=== PATIENT | female | born 1980 | race Caucasian/White ===

== ENCOUNTER 2017-11-04 15:42 | Emergency (ER) | payer SELFPAY ==
[2017-11-04] MEDS ORDERED: HYDROCODONE/ACETAMINOPHEN 5-325 MG TABLET PO ONE (16:09)
--- NOTE | 2017-11-04 16:12 | ER Document Report ---
HPI - HPI Patient complains to provider of: Left foot and ankle pain Onset: Yesterday Onset/Duration: Sudden Quality of pain: Sharp Pain Level: 4 Context: Patient states she was sitting on her foot and that it went to sleep. Patient states that whenever she stood up her foot and ankle rolled under her. Patient complains of pain now to left ankle and foot. Patient with bruising to left lateral foot area Associated Symptoms: Other - Left foot and ankle pain Exacerbated by: Standing, Movement, Walking Relieved by: Denies Similar symptoms previously: No Recently seen / treated by doctor: No - ROS ROS below otherwise negative: Yes Systems Reviewed and Negative: Yes All other systems reviewed and negative - CONSTITUTIONAL Constitutional: DENIES: Fever - GASTROINTESTINAL Gastrointestinal: DENIES: Nausea - REPRODUCTIVE Reproductive: DENIES: : - MUSCULOSKELETAL Musculoskeletal: REPORTS: Extremity pain, Swelling - DERM Skin Color: Ecchymosis Past Medical History - General Information source: Patient - Social History Smoking Status: Current Every Day Smoker Smoking Education Provided: Yes Frequency of alcohol use: None Drug Abuse: None Occupation: None Lives with: Spouse/Significant other Family History: Reviewed & Not Pertinent Pulmonary Medical History: Reports: Hx Asthma Psychiatric Medical History: Reports: Hx Depression Past Surgical History: Reports: Hx Orthopedic Surgery - wrist, Hx Tubal Ligation - Immunizations Hx Diphtheria, Pertussis, Tetanus Vaccination: No Vertical Provider Document - CONSTITUTIONAL Agree With Documented VS: Yes Exam Limitations: No Limitations General Appearance: WD/WN, No Apparent Distress - INFECTION CONTROL TRAVEL OUTSIDE OF THE [place] IN LAST 30 DAYS: No - HEENT HEENT: Atraumatic, Normocephalic - NECK Neck: Normal Inspection - RESPIRATORY Respiratory: No Respiratory Distress O2 Sat by Pulse Oximetry: 100 - CARDIOVASCULAR Pulses: Normal: Posterior tibial, Dorsalis pedis - MUSCULOSKELETAL/EXTREMETIES Musculoskeletal/Extremeties: MAEW, Tender - Left ankle tenderness over bimalleolar area, left midfoot tenderness to lateral aspect with overlying ecchymosis and edema, Edema, Eccymosis - NEURO Level of Consciousness: Awake, Alert, Appropriate Motor/Sensory: No Motor Deficit - DERM Integumentary: Warm Course - Re-evaluation Re-evalutation: 11/04/17 16:12 Smoking cessation handout provided to patient 11/04/17 17:36 Controlled substance database reviewed - Vital Signs Vital signs: Temp Pulse Resp BP Pulse Ox 97.8 F 66 16 118/82 100 11/04/17 16:01 11/04/17 16:01 11/04/17 16:01 11/04/17 16:01 11/04/17 16:01 - Diagnostic Test Radiology reviewed: Image reviewed, Reports reviewed Procedures - Immobilization Left Foot Pre-Proc Neuro Vasc Exam: Normal Immobilizer type: Joce wrap, Post-op shoe Performed by: PCT Post-Proc Neuro Vasc Exam: Normal Alignment checked and good: Yes Discharge - Discharge Clinical Impression: Ankle sprain Qualifiers: Encounter type: initial encounter Involved ligament of ankle: unspecified ligament Laterality: left Qualified Code(s): S93.402A - Sprain of unspecified ligament of left ankle, initial encounter Foot sprain Qualifiers: Encounter type: initial encounter Laterality: left Qualified Code(s): S93.602A - Unspecified sprain of left foot, initial encounter Foot contusion Qualifiers: Encounter type: initial encounter Laterality: left Qualified Code(s): S90.32XA - Contusion of left foot, initial encounter Condition: Stable Disposition: HOME, SELF-CARE Instructions: Joce Wrap ([facility]), Oral Narcotic Medication ([facility]), Post-Op Shoe ([facility] ), Sprain ([facility]), Sprained Ankle ([facility]) Additional Instructions: Return immediately for any new or worsening symptoms Followup with your primary care provider, call tomorrow to make a followup appointment Weightbearing as tolerated Follow-up with orthopedic doctor for any continued pain or problems Prescriptions: Acetaminophen with Codeine [Acetaminophen-Cod #3 Tablet] 1 each PO Q6 PRN #12 tablet PRN Reason: Naproxen [Naprosyn 250 Nmg Tablet] 1 tab PO BID #14 tablet Forms: Smoking Cessation Education Referrals: [facility] ([place] [Provider Group] - Follow up tomorrow
--- NOTE | 2017-11-04 17:09 | RADIOLOGY REPORT (SQ) ---
EXAM DESCRIPTION: FOOT LEFT COMPLETE COMPLETED DATE/TIME: 11/04/2017 4:56 pm REASON FOR STUDY: rolled foot/ankle COMPARISON: None. NUMBER OF VIEWS: Three views. TECHNIQUE: AP, lateral and oblique radiographic images acquired of the left foot. LIMITATIONS: None. FINDINGS: MINERALIZATION: Normal. BONES: No acute fracture or dislocation. Hallux valgus with bunion deformity. No worrisome bone les ions. JOINTS: No effusions. SOFT TISSUES: No soft tissue swelling. No foreign body. OTHER: No other significant finding. IMPRESSION: HALLUX VALGUS WITH BUNION DEFORMITY. NO RADIOGRAPHIC EVIDENCE OF ACUTE INJURY. TECHNICAL DOCUMENTATION: JOB ID: [id number] [employer]- All Rights Reserved
--- NOTE | 2017-11-04 17:09 | RADIOLOGY REPORT (SQ) ---
EXAM DESCRIPTION: ANKLE LEFT COMPLETE COMPLETED DATE/TIME: 11/04/2017 4:56 pm REASON FOR STUDY: rolled foot/ankle COMPARISON: None. NUMBER OF VIEWS: Three views. TECHNIQUE: AP, lateral, and oblique radiographic images acquired of the left ankle. LIMITATIONS: None. FINDINGS: MINERALIZATION: Normal. BONES: No acute fracture or dislocation. No worrisome bone lesions. JOINTS: No effusions. SOFT TISSUES: No soft tissue swelling. No foreign body. OTHER: No other significant finding. IMPRESSION: NEGATIVE STUDY OF THE LEFT ANKLE. NO RADIOGRAPHIC EVIDENCE OF ACUTE INJURY. TECHNICAL DOCUMENTATION: JOB ID: [id number] [employer]- All Rights Reserved
[2017-11-04 18:17] VITALS: BP 128/70
== END 2017-11-04 18:19 | disposition home or self-care (01) ==
LOC: ER 15:42
DX: S93.402A Sprain of unspecified ligament of left ankle, initial encounter (principal); S93.602A Unspecified sprain of left foot, initial encounter; X50.0XXA Overexertion from strenuous movement or load, initial encounter; J45.909 Unspecified asthma, uncomplicated; F17.200 Nicotine dependence, unspecified, uncomplicated
CPT/HCPCS: 99283

== ENCOUNTER 2018-05-07 17:22 | Emergency (ER) | payer OTHER ==
[2018-05-07 17:58] VITALS: BP 121/75
[2018-05-07] MEDS ORDERED: NAPROXEN 250 MG TABLET PO ONE (18:35)
[2018-05-07] MEDS ORDERED: DIAZEPAM 5 MG TABLET PO ONE (18:35)
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
== END 2018-05-07 18:53 | disposition home or self-care (01) ==
LOC: ER 17:22
DX: S39.012A Strain of muscle, fascia and tendon of lower back, initial encounter (principal); V59.40XA Driver of pick-up truck or van injured in collision with unspecified motor vehicles in traffic accident, initial encounter; J45.909 Unspecified asthma, uncomplicated; Z91.018 Allergy to other foods
CPT/HCPCS: 99283

== ENCOUNTER 2019-03-09 12:03 | Emergency (ER) | payer OTHER ==
--- NOTE | 2019-03-09 12:26 | ER Document Report ---
ED Respiratory Problem - General Chief Complaint: Breathing Difficulty Stated Complaint: DIFFICULTY BREATHING/SORE THROAT Time Seen by Provider: 03/09/19 12:09 Mode of Arrival: Ambulatory Information source: Patient Notes: 38-year-old female presented to ED for cough congestion sore throat and runny nose. 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 Patient is alert oriented respirations regular and unlabored speaking in full sentences walks with a even steady gait swallowing her own saliva easily. TRAVEL OUTSIDE OF THE [place] IN LAST 30 DAYS: No - HPI Patient complains to provider of: Cough, Other - Sore throat Onset: This morning Duration: Intermittent episodes Initiating Event: URI Quality of pain: Other - Sore throat Severity: Moderate Pain Level: 3 Context: Smoker Cough: Nonproductive Sputum amount: None Associated symptoms: Congestion, Cough, PND, Runny nose, Sinus pain/pressure, Sore Throat, Other - Swollen hands from frequent shucking of shellfish Similar symptoms previously: Yes Recently seen / treated by doctor: No - Related Data Allergies/Adverse Reactions: onions Allergy (Intermediate, Uncoded 03/09/19 12:05) Hives Past Medical History - General Information source: Patient - Social History Smoking Status: Current Every Day Smoker Cigarette use (# per day): Yes - Pack per day Chew tobacco use (# tins/day): No Smoking Education Provided: Yes - Form and Frequency of alcohol use: Occasional 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 none in the last couple days 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 Lives with: Family - Uncle Family History: Reviewed & Not Pertinent Patient has suicidal ideation: No Patient has homicidal ideation: No - Past Medical History Cardiac Medical History: Reports: None Pulmonary Medical History: Reports: Hx Asthma EENT Medical History: Reports: None Neurological Medical History: Reports: None Endocrine Medical History: Reports: None Renal/ Medical History: Reports: None Malignancy Medical History: Reports: None GI Medical History: Reports: Hx Hepatitis - hep c Musculoskeletal Medical History: Reports Hx Musculoskeletal Deformity, Reports Hx Musculoskeletal Trauma Skin Medical History: Reports None Psychiatric Medical History: Reports: Hx Depression Traumatic Medical History: Reports: Hx Fractures Infectious Medical History: Reports: Hx Hepatitis - hep c Past Surgical History: Reports: Hx Orthopedic Surgery - wrist, Hx Tubal Ligation - Immunizations Hx Diphtheria, Pertussis, Tetanus Vaccination: No Review of Systems - Review of Systems Constitutional: Recent illness EENT: Nose congestion, Nose discharge, Sinus pressure, Sinus discharge, Throat pain Cardiovascular: No symptoms reported Respiratory: Cough Gastrointestinal: No symptoms reported Genitourinary: No symptoms reported Female Genitourinary: No symptoms reported Musculoskeletal: No symptoms reported Skin: No symptoms reported Neurological/Psychological: No symptoms reported -: Yes All other systems reviewed and negative Physical Exam - Vital signs Vitals: Temp Pulse Resp BP Pulse Ox 97.8 F 86 18 99/58 L 99 03/09/19 12:09 03/09/19 12:09 03/09/19 12:09 03/09/19 12:03/09/19 12:09 Interpretation: Normal - General General appearance: Appears well, Alert - HEENT Head: Normocephalic, Atraumatic Eyes: Normal Pupils: PERRL Ears: Normal External canal: Normal Tympanic membrane: Normal Sinus: Normal Nasal: Purulent discharge, Swelling Mouth/Lips: Normal Mucous membranes: Normal Pharynx: Post nasal drainage Neck: Normal - Respiratory Respiratory status: No respiratory distress Chest status: Nontender Breath sounds: Nonproductive cough Chest palpation: Normal - Cardiovascular Rhythm: Regular Heart sounds: Normal auscultation Murmur: No - Abdominal Inspection: Normal Distension: No distension Bowel sounds: Normal Tenderness: Nontender Organomegaly: No organomegaly - Back Back: Normal, Nontender - Extremities General upper extremity: Nontender, Normal color, Normal ROM, Normal temperature General lower extremity: Normal inspection, Nontender, Normal color, Normal ROM, Normal temperature, Normal weight bearing. 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 Patient's negative chest x-ray negative strep negative and a mono. Patient states she had been clean from her heroin but has used recently but does not want family to know. Family was not informed. Patient was discharged home with instructions for Flonase nasal spray salt and soda solution [id number] antihistamines and other recommendations for cough and cold congestion symptoms. Patient is alert and oriented respirations regular and unlabored able to swallow with no difficulty. Patient was discharged home. After performing a Medical Screening Examination, I estimate there is LOW risk for ACUTE CORONARY SYNDROME, RESPIRATORY FAILURE, SEPSIS OR MENINGITIS, thus I consider the discharge disposition reasonable. I have reevaluated this patient multiple times and no significant life threatening changes are noted. The patient and I have discussed the diagnosis and risks, and we agree with discharging home with close follow-up. We also discussed returning to the Emergency Department immediately if new or worsening symptoms occur. We have discussed the symptoms which are most concerning (e.g., changing or worsening pain, trouble swallowing or breathing, neck stiffness, fever) that necessitate immediate return. - Vital Signs Vital signs: Temp Pulse Resp BP Pulse Ox 97.8 F 86 18 99/58 L 99 03/09/19 12:09 03/09/19 12:09 03/09/19 12:09 03/09/19 12:03/09/19 12:09 - Diagnostic Test Radiology reviewed: Image reviewed, Reports reviewed Discharge - Discharge Clinical Impression: Viral sore throat URI (upper respiratory infection) Qualifiers: URI type: unspecified viral URI Qualified Code(s): J06.9 - Acute upper respiratory infection, unspecified Condition: Stable Disposition: HOME, SELF-CARE Instructions: Family Physicians / Practices Additional Instructions: SORE THROAT: Sore throats may be caused by viruses, bacteria, or fungi. Most are due to a virus, and must get better on their own. Bacterial sore throats, particularly those due to "strep," need treatment with antibiotics. If an antibiotic is prescribed, be sure to take the medication for a full 10 days. Failure to take the antibiotic can result in complications such as rheumatic fever. Sometimes, an injection of antibiotics is given instead of pills or liquid. This single "shot" is equal in effectiveness to the oral med ication. To relieve symptoms, take acetaminophen for pain. Sip clear liquids frequently, or eat popsicles or ice chips. Anesthetic sprays or lozenges may help. Make sure the air in the room is not too dry. Avoid using decongestants or antihistamines. Call the doctor if there is no improvement in two days, or if you have difficulty breathing, increasing throat pain, high fever, rash, or frequent vomiting. UPPER RESPIRATORY ILLNESS: You have a viral infection of the respiratory passages -- a "cold." This common infection causes nasal congestion, drainage, and often sore throat and cough. It is highly contagious. The disease usually lasts about 10 to 14 days. There is no "cure" for the viral infection -- it must run its course. If there is a complication, such as bacterial infection in the nose, sinuses, middle ear, or bronchial tubes, antibiotics may be required. The antibiotics won't affect the virus. Drink plenty of fluids. A humidifier may help. An expectorant medication or decongestant may make you more comfortable. Use acetaminophen or ibuprofen for fever or aches. See the doctor if fever persists over two days, if there is any significant worsening of your symptoms, or if you simply fail to improve as expected. COUGH-SUPPRESSANT & EXPECTORANT MEDICATION: You are to use a cough medication as needed for relief of symptoms. This medicine is a combination of an expectorant (to make the mucous thinner and more easily "coughed up") and a cough suppressant (to reduce the frequency of coughing). The cough-suppressant medicine is related to narcotics. You may experience mild nausea and sleepiness. Some patients who are very sensitive to narcotics may have stomach pain from this medicine. Taking the medicine with food reduces these side effects. Do not drive or work with machinery until you know how this medicine affects you. The expectorant should have no side effects. Iodine-containing expectorants (such as organidin) should not be taken by persons with active thyroid disease unless approved by your doctor. Call the doctor if you develop shortness of breath, hives, rash, itching, lightheadedness, or severe nausea and vomiting. USE OF ACETAMINOPHEN (Tylenol): Acetaminophen may be taken for pain relief or fever control. It's much safer than aspirin, offering a wider range of "safe" dosages. It is safe during . Some brand names are Tylenol, Panadol, Datril, Anacin 3, Tempra, and Liquiprin. Acetaminophen can be repeated every four hours. The following are maximum recommended dosages: >89 pounds or adults 650 mg to 900 mg Acetaminophen can be repeated every four hours. Maximum dose not to exceed 4000 mg a day. SMOKING: If you smoke, you should stop smoking. The tar and chemicals in cigarette smoke are harmful. Smoking has been shown to cause: emphysema chronic bronchitis lung cancer mouth and throat cancer stomach and pancreas cancer premature aging defects In addition, smoking increases ear and lung infections in children of smokers. Recommend [id number] antihistamines, Mucinex, Flonase, salt and soda solution gargles. You could also use saline nasal spray to help with the drainage from the nose. Salt and soda solution Salt and soda solution 1 quart of water 1 tablespoon of salt 1 teaspoon of baking soda Mixed 3 ingredients together and boil for 1 minute Placed in a covered quart jar Use 1/2 ounce of cold solution to gargle 3 times a day FOLLOW-UP CARE: If you have been referred to a physician for follow-up care, call the physicians office for an appointment as you were instructed or within the next two days. If you experience worsening or a significant change in your symptoms, notify the physician immediately or return to the Emergency Department at any time for re-evaluation. Forms: Smoking Cessation Education, Return to Work
--- NOTE | 2019-03-09 12:49 | RADIOLOGY REPORT (SQ) ---
EXAM DESCRIPTION: CHEST 2 VIEWS COMPLETED DATE/TIME: 03/09/2019 12:36 pm REASON FOR STUDY: cough COMPARISON: 10/15/2016. EXAM PARAMETERS: NUMBER OF VIEWS: two views TECHNIQUE: Digital Frontal and Lateral radiographic views of the chest acquired. RADIATION DOSE: NA LIMITATIONS: none FINDINGS: LUNGS AND PLEURA: No opacities, masses or pneumothorax. No pleural effusion. MEDIASTINUM AND HILAR STRUCTURES: No masses or contour abnormalities. HEART AND VASCULAR STRUCTURES: Heart normal size. No evidence for failure. BONES: No acute findings. HARDWARE: None in the chest. OTHER: No other significant finding. IMPRESSION: NO ACUTE RADIOGRAPHIC FINDING IN THE CHEST. TECHNICAL DOCUMENTATION: JOB ID: [id number] [employer]- All Rights Reserved Reading location - IP/workstation name: [email or web address]
[2019-03-09 13:20] VITALS: BP 100/60
== END 2019-03-09 13:18 | disposition home or self-care (01) ==
LOC: ER 12:03
DX: J02.8 Acute pharyngitis due to other specified organisms (principal); J06.9 Acute upper respiratory infection, unspecified; B97.89 Other viral agents as the cause of diseases classified elsewhere; R09.89 Other specified symptoms and signs involving the circulatory and respiratory systems; J34.89 Other specified disorders of nose and nasal sinuses; R09.82 Postnasal drip; R05 Cough; M79.89 Other specified soft tissue disorders; F17.210 Nicotine dependence, cigarettes, uncomplicated; F11.10 Opioid abuse, uncomplicated; J45.909 Unspecified asthma, uncomplicated; R09.81 Nasal congestion
CPT/HCPCS: 36415; 71046; 86308; 87070; 87880; 99283

== ENCOUNTER 2019-08-07 15:49 | Emergency (ER) | payer SELFPAY ==
[2019-08-07] MEDS ORDERED: ONDANSETRON HCL INJ/PF 4 MG/2 ML SDV IV ONE (16:03)
[2019-08-07] MEDS ORDERED: NORMAL SALINE 1000 ML 1,000 ML IV ONE ×2 (16:03→19:24)
--- NOTE | 2019-08-07 16:06 | ER Document Report ---
ED Medical Screen (RME) - General Chief Complaint: Medical Clearance Stated Complaint: DETOX Time Seen by Provider: 08/07/19 16:03 Mode of Arrival: Ambulatory Information source: Patient Notes: Patient presents stating that she is withdrawing from opiates as well as benzos. Patient states that she was going to [facility] facility although they advised her that she had to come here because she had had seizures. Patient denies any history of seizures other than withdrawal seizures due to withdrawing from benzodiazepine drugs. Patient states she did take 2 mg of Xanax prior to her arrival here today. Patient states that she has been using opiates, heroin as well as methamphetamine and Xanax. Patient complains of feeling weak, thirsty, dizzy, shaky and emotional. I have greeted and performed a rapid initial assessment of this patient. A comprehensive ED assessment and evaluation of the patient, analysis of test results and completion of the medical decision making process will be conducted by additional ED providers. TRAVEL OUTSIDE OF THE [place] IN LAST 30 DAYS: No - Related Data Allergies/Adverse Reactions: onions Allergy (Intermediate, Uncoded 08/07/19 16:00) Hives Past Medical History Pulmonary Medical History: Reports: Hx Asthma Renal/ Medical History: Denies: Hx Peritoneal Dialysis GI Medical History: Reports: Hx Hepatitis - hep c Musculoskeltal Medical History: Reports Hx Musculoskeletal Deformity, Reports Hx Musculoskeletal Trauma Psychiatric Medical History: Reports: Hx Depression Traumatic Medical History: Reports: Hx Fractures Infectious Medical History: Reports: Hx Hepatitis - hep c Past Surgical History: Reports: Hx Orthopedic Surgery - wrist, Hx Tubal Ligation - Immunizations Hx Diphtheria, Pertussis, Tetanus Vaccination: No Physical Exam - Vital signs Vitals: Temp Pulse Resp BP Pulse Ox 98.1 F 126 H 18 109/70 100 08/07/19 15:54 08/07/19 15:54 08/07/19 15:54 08/07/19 15:54 08/07/19 15:54 - General General appearance: Alert, Anxious Notes: Tachycardic Course - Vital Signs Vital signs: Temp Pulse Resp BP Pulse Ox 98.1 F 126 H 18 109/70 100 08/07/19 15:54 08/07/19 15:54 08/07/19 15:54 08/07/19 15:54 08/07/19 15:54
[2019-08-07 16:58] LABS: ABSOLUTE BASOPHILS # (AUTO) 0.1 10^3/uL (0.0-0.2); ABSOLUTE LYMPHOCYTES (AUTO) 2.3 10^3/uL (0.5-4.7); ABSOLUTE MONOCYTES (AUTO) 0.5 10^3/uL (0.1-1.4); ABSOLUTE NEUT (AUTO) 6.8 10^3/uL (1.7-8.2); BASOPHILS % (AUTO) 0.8 % (0-2); EOSINOPHILS % (AUTO) 0.2 % (0-6); HEMATOCRIT 45.6 % (36.0-47.0); HEMOGLOBIN 15.8 g/dL (12.0-15.5); LYMPHOCYTES % (AUTO) 23.6 % (13-45); MEAN CORPUSCULAR HEMOGLOBIN 31.1 pg (27.0-33.4); MEAN CORPUSCULAR HGB CONC 34.7 g/dL (32.0-36.0); MEAN CORPUSCULAR VOLUME 90 fl (80-97); MONOCYTES % (AUTO) 5.4 % (3-13); PLATELET COUNT 322 10^3/uL (150-450); RED BLOOD COUNT 5.08 10^6/uL (3.72-5.28); RED CELL DISTRIBUTION WIDTH 13.4 % (11.5-14.0); TOTAL CELLS COUNTED % (AUTO) 100 %; WHITE BLOOD COUNT 9.7 10^3/uL (4.0-10.5)
--- NOTE | 2019-08-07 17:22 | ER Document Report ---
ED General - General Chief Complaint: Drug Abuse Stated Complaint: DETOX Time Seen by Provider: 08/07/19 16:03 Mode of Arrival: Ambulatory TRAVEL OUTSIDE OF THE [place] IN LAST 30 DAYS: No - HPI Notes: Patient is a 39-year-old female with a history of polysubstance drug abuse including benzos, methamphetamine, and heroin who presents complaining of withdrawal symptoms and requesting detox. Patient states that her primary focus is the benzodiazepines that she has been on these for a very long time. Patient states that she is also had daily heroin use. Patient states that she tried quitting cold turkey of everything 2 days ago, but she may have had a mild seizure at that time. She is also confused and not able to tolerate symptoms on her own so she took the remaining 3 mg of her benzodiazepine today and presented to [facility]. They deemed her too complicated for them and sent her here for evaluation. Patient states that she has never had a seizure aside from withdr awal seizure in the past. Patient states that she has not been eating or drinking much over the past few days as well. She has been urinating less. She is having normal bowel movements. No other concerns or complaints. Denies any headache, fever, neck pain, changes in vision/speech/mentation/hearing, URI, sore throat, chest pain, palpitations, syncope, cough, shortness of breath, wheeze, dyspnea, abdominal pain, nausea/vomiting/diarrhea, urinary retention, dysuria, hematuria, loss of control of bowel or bladder, numbness/tingling, saddle anesthesia, muscle paralysis, or rash. - Related Data Allergies/Adverse Reactions: onions Allergy (Intermediate, Uncoded 08/07/19 16:00) Hives Past Medical History - General Information source: Patient - Social History Smoking Status: Current Every Day Smoker Family History: Reviewed & Not Pertinent Patient has suicidal ideation: No Patient has homicidal ideation: No Pulmonary Medical History: Reports: Hx Asthma Renal/ Medical History: Denies: Hx Peritoneal Dialysis GI Medical History: Reports: Hx Hepatitis - hep c Musculoskeletal Medical History: Reports Hx Musculoskeletal Deformity, Reports Hx Musculoskeletal Trauma Psychiatric Medical History: Reports: Hx Depression Traumatic Medical History: Reports: Hx Fractures Infectious Medical History: Reports: Hx Hepatitis - hep c Past Surgical History: Reports: Hx Orthopedic Surgery - wrist, Hx Tubal Ligation - Immunizations Hx Diphtheria, Pertussis, Tetanus Vaccination: No Review of Systems - Review of Systems -: Yes All other systems reviewed and negative Physical Exam - Vital signs Vitals: Temp Pulse Resp BP Pulse Ox 98.1 F 126 H 18 109/70 100 08/07/19 15:54 08/07/19 15:54 08/07/19 15:54 08/07/19 15:54 08/07/19 15:54 - Notes Notes: PHYSICAL EXAMINATION: GENERAL: Well-appearing, well-nourished and in no acute distress. A&Ox4. Answers questions appropriately. HEAD: Atraumatic, normocephalic. Non-tender. EYES: Pupils equal round and reactive to light, extraocular movements intact, sclera anicteric, conjunctiva are normal. No nystagmus. ENT: Nares patent and without discharge. oropharynx clear without exudates. No tonsilar hypertrophy or erythema. mildly dry mucous membranes. No sinus tenderness. NECK: Normal range of motion, supple without lymphadenopathy. No rigidity/meningismus. No midline tenderness. LUNGS: Breath sounds clear to auscultation bilaterally and equal. No wheezes rales or rhonchi. HEART: Regular rate and rhythm without murmurs, rubs, gallops. ABDOMEN: Soft, nontender, nondistended abdomen. No guarding, no rebound. Normal bowel sounds present. No CVA tenderness bilaterally. Musculoskeletal: Ext b/l: FROM to passive/active. Strength 5+/5. No deficits noted. No bony tenderness of extremities. Extremities: No cyanosis, clubbing, or edema b/l. Peripheral pulses 2+. Capillary refill less than 2 seconds. NEUROLOGICAL: GCS 15. Cranial nerves grossly intact. Normal speech, normal gait. Normal sensory, motor exams. PSYCH: Normal mood, normal affect. SKIN: Warm, Dry, normal turgor, no rashes or lesions noted. Course - Re-evaluation Re-evalutation: 08/07/19 17:19 I have reviewed options with the patient. She has no SI/HI and does not meet IVC criteria. She wishes to remain here on a voluntary basis for continued medical treatment/obs until evaluation in the morning with our Psychology Team. I do feel this is in the best interest of the patient and her safety as she may have had a seizure yesterday and even if she talks to [facility] upon discharge, they may not be able to get her a bed for [address]. [address] Campos regarding meds and we will give Ativan 0.5mg IV, as minimal as needed, throughout her stay. Pt placed on monitor, fluids going, and seizure precautions initiated. BP is not high enough to warrant clonidine patch at this time. Pt is currently mildly tachycardic in the low 100's. She is otherwise non-toxic appearing and afebrile. 08/07/19 19:52 Vitals acceptable HR 97, RR 21, 100% RA--on monitor active, BP 114/67 No new concerns or complaints. We will give another liter of fluid Another request placed for urine. Pt case will be turned over to the night APC at turnover. - Vital Signs Vital signs: Temp Pulse Resp BP Pulse Ox 98.3 F 99 13 114/67 100 08/07/19 19:37 08/07/19 19:37 08/07/19 19:37 08/07/19 19:37 08/07/19 19:37 - Laboratory Result Diagrams: 08/07/19 16:48 08/07/19 16:48 Laboratory results interpreted by me: 08/07/19 08/07/19 16:48 16:48 Hgb 15.8 H Calcium 10.3 H Alkaline Phosphatase 35 L Salicylates < 1.0 L Acetaminophen < 10 L Discharge - Discharge Clinical Impression: Poly-drug misuser Condition: Stable Disposition: OTHER
[2019-08-07 17:24] LABS: ALBUMIN 4.6 g/dL (3.5-5.0); ALKALINE PHOSPHATASE 35 U/L (38-126); ANION GAP 10 (5-19); ASPARTATE AMINO TRANSFERASE 34 U/L (14-36); BILIRUBIN,DIRECT 0.2 mg/dL (0.0-0.4); BILIRUBIN,TOTAL 0.7 mg/dL (0.2-1.3); BLOOD UREA NITROGEN 18 mg/dL (7-20); CALCIUM 10.3 mg/dL (8.4-10.2); CARBON DIOXIDE 30 mmol/L (22-30); CHLORIDE 100 mmol/L (98-107); GLUCOSE 90 mg/dL (75-110); POTASSIUM 4.5 mmol/L (3.6-5.0)
[2019-08-07 17:29] LABS: ACETAMINOPHEN < 10 ug/mL (10-30); ALCOHOL < 10 mg/dL (NONE DETECTED); SALICYLATE < 1.0 mg/dL (2.0-20.0)
[2019-08-07 20:02] LABS: APPEARANCE,URINE SLIGHTLY-CLOUDY; BILIRUBIN,URINE NEGATIVE (NEGATIVE); COLOR,URINE YELLOW; GLUCOSE, URINE NEGATIVE (NEGATIVE); KETONES,URINE NEGATIVE (NEGATIVE); LEUKOCYTE ESTERASE,URINE LARGE (NEGATIVE); NITRITE,URINE POSITIVE (NEGATIVE); PROTEIN,URINE 30 mg/dL (NEGATIVE); URINE SPECIFIC GRAVITY 1.016
[2019-08-07] MEDS ORDERED: CEFTRIAXONE 1 GM/D5W RTU 1 GM/50 ML RTUPB IV ONE (20:06)
[2019-08-07 20:15] LABS: URINE BARBITURATES SCREEN NEGATIVE; URINE BENZODIAZEPINES SCREEN UNCONFIRMED POSITIVE; URINE COCAINE SCREEN NEGATIVE; URINE MARIJUANA (THC) SCREEN NEGATIVE; URINE METHADONE SCREEN NEGATIVE; URINE PHENCYCLIDINE SCREEN NEGATIVE
[2019-08-07] MEDS ORDERED: DOCUSATE SODIUM 100 MG CAPSULE PO ONE (21:08)
--- NOTE | 2019-08-07 21:11 | ER Document Report ---
Doctor's Note Notes: 08/07/19 21:09 Pts urine does show signs of infx, Ceftriazone started. Sent for CX I have examined the Pt. at bedside and she is requesting a stool softner. States she has intermittent lower back and superpubic pain. NO CVA tenderness noted. Discussed UTI dx. Pt. denies vaginal d/c. HR 92, BP 95/52, SPO2 100, RR 16. Pt. is talking on her cell phone, NAD.
--- NOTE | 2019-08-07 23:05 | EKG REPORT ---
SEVERITY:- NORMAL ECG - SINUS RHYTHM : Confirmed by: Rayray Noriega 07-Aug-2019 23:04:24
--- NOTE | 2019-08-08 12:39 | ER Document Report ---
Doctor's Note Notes: 08/08/19 12:37 31-year-old female presents the ED for evaluation for detoxing from benzodiazepines, methamphetamine and heroin. Patient will be going to [facility] for outpatient rehab. Patient has not had any seizures while she is here in the emergency room. Family is at bedside. Denies any complaints at this time. Providers notes, nurse's notes and mental health notes reviewed, laboratory findings, diagnostic findings reviewed. Patient does have a UTI, was given Rocephin IM yesterday, will start on Macrobid 100 mg twice a day for 10 days, advised to follow-up with primary care provider for further evaluation after she is finished her antibiotic for reevaluation of her UTI. Advised to increase oral hydration. Patient has been cleared by mental health to return to [facility] for outpatient rehab, patient is agreeable to count of care and agrees with this plan of care. Patient denies any homicidal suicidal ideation. After performing a Medical Screening Examination, I estimate there is LOW risk for ACUTE APPENDICITIS, BOWEL OBSTRUCTION, ACUTE CHOLECYSTITIS, PERFORATED DIVERTICULITIS, INCARCERATED HERNIA, PANCREATITIS, PELVIC INFLAMMATORY DISEASE, PERFORATED ULCER, ECTOPIC , or TUBO-OVARIAN ABSCESS, thus I consider the discharge disposition reasonable. Also, there is no evidence or peritonitis, sepsis, or toxicity. I have reevaluated this patient multiple times and no significant life threatening changes are noted. The patient and I have discussed the diagnosis and risks, and we agree with discharging home with close follow-up with the understanding that symptoms and presentations can change. We also discussed returning to the Emergency Department immediately if new or worsening symptoms occur. We have discussed the symptoms which are most concerning (e.g., bloody stool, fever, changing or worsening pain, vomiting) that necessitate immediate return.
[2019-08-08 13:12] VITALS: BP 116/50
== END 2019-08-08 13:13 | disposition home or self-care (01) ==
LOC: ER 15:49
DX: F19.10 Other psychoactive substance abuse, uncomplicated (principal); N39.0 Urinary tract infection, site not specified; M54.5 Low back pain; R10.30 Lower abdominal pain, unspecified; J45.909 Unspecified asthma, uncomplicated
CPT/HCPCS: 93005; 99283; 96361; 96375; 96365; 96366; 36415; 80307 ×4; 84703; 85025; 80053; 81001; 93010; J2405; J7030; J0696

== ENCOUNTER 2020-05-05 03:11 | Emergency (ER) | payer SELFPAY ==
[2020-05-05 03:18] VITALS: BP 112/62
--- NOTE | 2020-05-05 06:34 | ER Document Report ---
HPI - HPI Time Seen by Provider: 05/05/20 06:34 Pain Level: 4 Context: Patient is a 40-year-old female who presents the emergency department with a chief complaint of right second and third toe pain. Patient states that 2 weeks ago she was walking in her hallway and accidentally kicked a metal box. Patient states that she has been working with her foot like this. - ROS Systems Reviewed and Negative: Yes All other systems reviewed and negative - CONSTITUTIONAL Constitutional: DENIES: Fever, Chills - EENT EENT: DENIES: Sore Throat, Ear Pain, Nasal Drainage-Clear - NEURO Neurology: DENIES: Headache - RESPIRATORY Respiratory: DENIES: Trouble Breathing, Coughing - GASTROINTESTINAL Gastrointestinal: DENIES: Abdominal Pain, Nausea, Patient vomiting - REPRODUCTIVE Reproductive: DENIES: : - MUSCULOSKELETAL Musculoskeletal: REPORTS: Extremity pain - right 2nd and 3rd toes, Swelling - right 2nd and 3rd toes - DERM Skin Color: Normal Skin Problems: None Past Medical History - Social History Smoking Status: Current Every Day Smoker Chew tobacco use (# tins/day): No Frequency of alcohol use: Occasional Drug Abuse: None Family History: Reviewed & Not Pertinent Pulmonary Medical History: Reports: Hx Asthma Renal/ Medical History: Denies: Hx Peritoneal Dialysis GI Medical History: Reports: Hx Hepatitis - hep c Musculoskeletal Medical History: Reports Hx Musculoskeletal Deformity, Reports Hx Musculoskeletal Trauma Psychiatric Medical History: Reports: Hx Depression Traumatic Medical History: Reports: Hx Fractures Infectious Medical History: Reports: Hx Hepatitis - hep c Past Surgical History: Reports: Hx Orthopedic Surgery - wrist, Hx Tubal Ligation - Immunizations Hx Diphtheria, Pertussis, Tetanus Vaccination: No Vertical Provider Document - CONSTITUTIONAL Agree With Documented VS: Yes Exam Limitations: No Limitations General Appearance: No Apparent Distress - INFECTION CONTROL TRAVEL OUTSIDE OF THE [place] IN LAST 30 DAYS: No - HEENT HEENT: Atraumatic, Normocephalic, PERRLA - RESPIRATORY Respiratory: No Respiratory Distress - CARDIOVASCULAR Cardiovascular: Regular Rate Pulses: Normal: Posterior tibial, Dorsalis pedis - MUSCULOSKELETAL/EXTREMETIES Musculoskeletal/Extremeties: FROM, Tender - Right second and third digits., Edema - Right third digit. negative: Eccymosis - NEURO Level of Consciousness: Awake, Alert, Appropriate Motor/Sensory: No Motor Deficit, No Sensory Deficit - DERM Integumentary: Warm, Dry, No Rash Course - Re-evaluation Re-evalutation: 05/05/20 There is a fracture to the patient's right third metatarsal on x-ray. I offered the patient crutches and the patient refused. Stated she had them at home. Will place patient in a postop shoe and will soha tape second and third toes together. She will follow-up with orthopedics as needed. Capillary refill less than 3 seconds. Dorsalis pedis and posterior tibial pulses 2+. No vascular compromise noted. Follow-up precautions were given. Verbal discharge instructions were given to the patient. They verbalized understanding. They are stable for discharge. - Vital Signs Vital signs: Temp Pulse Resp BP Pulse Ox 98.7 F 98 16 112/62 100 05/05/20 04:21 05/05/20 03:17 05/05/20 03:17 05/05/20 03:17 05/05/20 03:17 Procedures - Immobilization Right Toe 3rd digit Pre-Proc Neuro Vasc Exam: Normal Immobilizer type: Post-op shoe, Other - soha tape Performed by: PCT Post-Proc Neuro Vasc Exam: Normal, Unchanged from pre-exam Alignment checked and good: Yes Discharge - Discharge Clinical Impression: Fracture of third toe, right, closed Qualifiers: Encounter type: initial encounter Qualified Code(s): S92.501A - Displaced unspecified fracture of right lesser toe(s), initial encounter for closed fracture Condition: Stable Disposition: HOME, SELF-CARE Instructions: Soha Taping (toes) (OM), Use of Crutches (OM), Post-Op Shoe (OM) Additional Instructions: You were seen today in the emergency department for pain to your right second and third toe. You have a fracture. Rest, apply ice, and elevate your foot. Use the crutches you have at home. Wear the postop shoe as much as possible. Take ibuprofen as needed. Follow-up with orthopedics in regards to this visit. Prescriptions: Ibuprofen [Motrin 800 mg Tablet] 800 mg PO Q8H PRN #20 tab PRN Reason: Forms: Return to Work Referrals: BALBIR RIGGINS MD [ACTIVE STAFF] - Follow up as needed GHASSAN AUGUSTIN JR, [ACTIVE PROVISIONAL STAFF] - Follow up as needed
--- NOTE | 2020-05-05 06:50 | RADIOLOGY REPORT (SQ) ---
EXAM DESCRIPTION: XR FOOT 3 OR MORE VIEWS COMPLETED DATE/TME: 05/05/2020 04:27 CLINICAL HISTORY: 40 years Female, swelling and tenderness COMPARISON: None. Findings: Acute oblique fracture of the right third proximal phalangeal diaphysis with minimal displacement. Soft tissue bunion swelling. Diffuse swelling. Minimal deformity of the right fifth metatarsal diaphysis indicative of prior injury. Bones, joints, and soft tissues of the RIGHT XR FOOT 3 OR MORE VIEWS appear otherwise unremarkable. IMPRESSION: Acute oblique fracture of the right third proximal phalangeal diaphysis with minimal displacement.
[2020-05-05] MEDS ORDERED: IBUPROFEN 600 MG TABLET PO ONE (07:06)
== END 2020-05-05 07:49 | disposition home or self-care (01) ==
LOC: ER 03:11
DX: S92.501A Displaced unspecified fracture of right lesser toe(s), initial encounter for closed fracture (principal); M79.674 Pain in right toe(s); M79.89 Other specified soft tissue disorders; W22.8XXA Striking against or struck by other objects, initial encounter; F17.200 Nicotine dependence, unspecified, uncomplicated; J45.909 Unspecified asthma, uncomplicated
CPT/HCPCS: 99283

== ENCOUNTER 2020-07-28 15:58 | Emergency (ER) | payer SELFPAY ==
[2020-07-28 16:17] VITALS: BP 132/76
[2020-07-28] MEDS ORDERED: ONDANSETRON HCL INJ/PF 4 MG/2 ML SDV IM ONE (16:48)
[2020-07-28] MEDS ORDERED: NORMAL SALINE 1000 ML 1,000 ML IV ONE (16:53)
--- NOTE | 2020-07-28 16:53 | ER Document Report ---
ED Medical Screen (RME) - General Chief Complaint: Nausea/Vomiting/Diarrhea Stated Complaint: NAUSEA/VOMITING/DIARRHEA Time Seen by Provider: 07/28/20 16:48 Mode of Arrival: Medic Information source: Patient Notes: 40-year-old female presented to ED for nausea and vomiting diarrhea since morning. She states she has not had any fevers. She states she does smoke a pack a day does not drink alcohol. She states she has not used any drugs this week but she did last week. She did would not say what she did use. She states she has had multiple emesis and diarrhea today. Patient was found laying on the floor in the emergency room there. I did instruct the patient please do not lay on the floor it is not appropriate to lay on the floor where a lot of people are walking around. She started crying please quit yelling at her. I did inform her that no one is likely yelling at her with just not sanitary to lie on the floor of an ER. Patient did have a large emesis in the triage room. She has been ordered Zofran IM as well as blood and urine and IV fluids. I have greeted and performed a rapid initial assessment of this patient. A comprehensive ED assessment and evaluation of the patient, analysis of test results and completion of medical decision making process will be conducted by an additional ED providers. TRAVEL OUTSIDE OF THE [place] IN LAST 30 DAYS: No - Related Data Allergies/Adverse Reactions: onions Allergy (Intermediate, Uncoded 08/07/19 16:00) Hives Past Medical History Pulmonary Medical History: Reports: Hx Asthma Renal/ Medical History: Denies: Hx Peritoneal Dialysis GI Medical History: Reports: Hx Hepatitis - hep c Musculoskeltal Medical History: Reports Hx Musculoskeletal Deformity, Reports Hx Musculoskeletal Trauma Psychiatric Medical History: Reports: Hx Depression Traumatic Medical History: Reports: Hx Fractures Infectious Medical History: Reports: Hx Hepatitis - hep c Past Surgical History: Reports: Hx Orthopedic Surgery - wrist, Hx Tubal Ligation - Immunizations Hx Diphtheria, Pertussis, Tetanus Vaccination: No Physical Exam - Vital signs Vitals: Temp Pulse Resp BP Pulse Ox 98.7 F 86 16 132/76 H 100 07/28/20 16:17 07/28/20 16:17 07/28/20 16:17 07/28/20 16:17 07/28/20 16:17 Course - Vital Signs Vital signs: Temp Pulse Resp BP Pulse Ox 98.7 F 86 16 132/76 H 100 07/28/20 16:17 07/28/20 16:17 07/28/20 16:17 07/28/20 16:17 07/28/20 16:17
--- NOTE | 2020-07-28 19:32 | RADIOLOGY REPORT (SQ) ---
EXAM DESCRIPTION: CHEST SINGLE VIEW IMAGES COMPLETED DATE/TIME: 07/28/2020 7:15 pm REASON FOR STUDY: short of breath COMPARISON: 03/09/2019 EXAM PARAMETERS: NUMBER OF VIEWS: One view. TECHNIQUE: Single frontal radiographic view of the chest acquired. RADIATION DOSE: NA LIMITATIONS: None. FINDINGS: LUNGS AND PLEURA: No opacities, masses or pneumothorax. No pleural effusion. MEDIASTINUM AND HILAR STRUCTURES: No masses. Contour normal. HEART AND VASCULAR STRUCTURES: Heart normal in size. Normal vasculature. BONES: No acute findings. HARDWARE: None in the chest. OTHER: No other significant finding. IMPRESSION: NO ACUTE RADIOGRAPHIC FINDING IN THE CHEST. TECHNICAL DOCUMENTATION: JOB ID: [id number] 2010 [employer]- All Rights Reserved Reading location - IP/workstation name: [email or web address]
== END 2020-07-28 20:20 | disposition left against medical advice (07) ==
LOC: ER 15:58
DX: R11.2 Nausea with vomiting, unspecified (principal); R19.7 Diarrhea, unspecified; F17.210 Nicotine dependence, cigarettes, uncomplicated; Z86.19 Personal history of other infectious and parasitic diseases; Z98.51 Tubal ligation status
CPT/HCPCS: 71045; 99281